=== PATIENT | female | born 1985 | race African-American/Black ===

== ENCOUNTER → 2020-11-01 | Outpatient (CLI) | payer OTHER | LOC: KOH-I 09:53 | DX: M79.671 Pain in right foot (principal); S92.511A Displaced fracture of proximal phalanx of right lesser toe(s), initial encounter for closed fracture | CPT/HCPCS: 73630 ==

== ENCOUNTER → 2020-11-15 | Outpatient (CLI) | payer OTHER | LOC: KOH-I 09:48 | DX: S92.501D Displaced unspecified fracture of right lesser toe(s), subsequent encounter for fracture with routine healing (principal) | CPT/HCPCS: 73660 ==